=== PATIENT | female | born 2005 | race Caucasian/White ===

== ENCOUNTER 2024-06-11 15:19 | Emergency (ER) | payer SELFPAY ==
[2024-06-11] MEDS: Tetracaine HCl/PF 0.5% 4 ML Bottle EYEBOTH ONE (16:14)
[2024-06-11] MEDS: Fluorescein 1 MG Ophth Strip EYERT ONE (16:17)
[2024-06-11] MEDS: Erythromycin Base 0.5% Ophth Oint 1 GM Tube EYERT ONE (17:03)
[2024-06-11] MEDS: Bacitracin Oint 28.35 GM Tube TOP ONE (17:04)
== END 2024-06-11 17:25 | disposition home or self-care (01) ==
LOC: MW.ED 15:19
DX: T65.891A Toxic effect of other specified substances, accidental (unintentional), initial encounter (principal); T26.91XA Corrosion of right eye and adnexa, part unspecified, initial encounter; Z79.2 Long term (current) use of antibiotics; Z75.8 Other problems related to medical facilities and other health care; X10.2XXA Contact with fats and cooking oils, initial encounter
CPT/HCPCS: 99283; A9270; J3490

== ENCOUNTER 2024-06-16 13:59 | Emergency (ER) | payer SELFPAY ==
[2024-06-16] MEDS: Tetracaine HCl/PF 0.5% 4 ML Bottle EYEBOTH ONE (15:21)
== END 2024-06-16 16:12 | disposition home or self-care (01) ==
LOC: MW.ED 13:59
DX: H57.89 Other specified disorders of eye and adnexa (principal); Z75.8 Other problems related to medical facilities and other health care
CPT/HCPCS: 99283; J3490

== ENCOUNTER 2024-07-22 11:05 | Emergency (ER) | payer SELFPAY ==
[2024-07-22] MEDS: Ondansetron 4 MG/2 ML SDV IVPUSH ONE (11:11)
[2024-07-22] MEDS: Sodium Chloride 0.9% 1,000 ML IV ONE ×2 (11:11→12:00)
[2024-07-22 11:20] LABS: BASOPHILS ABSOLUTE AUTO 0.02 K/uL (0.00-0.20); BASOPHILS PERCENT AUTO 0.2 % (0.0-1.0); EOSINOPHILS ABSOLUTE AUTO 0.02 K/uL (0.00-0.45); EOSINOPHILS PERCENT AUTO 0.2 % (0.0-6.0); HEMATOCRIT 43.6 % (37.0-47.0); HEMOGLOBIN 15.3 g/dL (12.0-16.0); IMMATURE GRAN ABSOLUTE AUTO 0.03 K/uL (0.00-0.05); IMMATURE GRAN PERCENT AUTO 0.3 % (0.0-0.4); LYMPHOCYTES ABSOLUTE AUTO 1.47 K/uL (1.00-4.80); LYMPHOCYTES PERCENT AUTO 15.7 % (24.0-44.0); MEAN CORPUSCULAR HEMOGLOBIN 32.3 pg (28.0-32.0); MEAN CORPUSCULAR HGB CONC 35.1 g/dL (32.0-36.0); MEAN CORPUSCULAR VOLUME 92.2 fL (83.0-99.0); MEAN PLATELET VOLUME 10.5 fL (9.4-12.3); MONOCYTES ABSOLUTE AUTO 0.45 K/uL (0.00-0.80); MONOCYTES PERCENT AUTO 4.8 % (0.0-8.0); NEUTROPHILS ABSOLUTE AUTO 7.39 K/uL (1.80-7.70); NEUTROPHILS PERCENT AUTO 78.8 % (41.0-71.0); PLATELET COUNT,PLT 207 K/uL (150-400); RED BLOOD CELL COUNT 4.73 M/uL (4.10-5.30); WHITE BLOOD CELL COUNT,WBC 9.38 K/uL (3.9-11.3)
[2024-07-22 11:42] LABS: A/G RATIO 1.2 (0.9-1.6); ALBUMIN 4.4 g/dL (3.4-5.0); BILIRUBIN TOTAL 0.7 mg/dL (0.2-1.0); CALCIUM 9.2 mg/dL (8.5-10.1); CARBON DIOXIDE,CO2 21.2 mmol/L (21.0-32.0); EST CRCL DRUG DOSING (CG) 90.53 mL/min; POTASSIUM,K 3.9 mmol/L (3.5-5.1)
[2024-07-22] MEDS: Haloperidol Lactate 5 MG/ML SDV IM ONE (12:00)
[2024-07-22 12:01] LABS: APPEARANCE,URINE CLEAR; GLUCOSE,URINE NEGATIVE (NEGATIVE); KETONES,URINE >=80 mg/dL (NEGATIVE); LEUKOCYTE ESTERASE,URINE NEGATIVE (NEGATIVE); NITRITE,URINE NEGATIVE (NEGATIVE); OCCULT BLOOD,URINE NEGATIVE (NEGATIVE); PH,URINE 6.5 (5.0-8.0); PROTEIN,URINE 30 mg/dL (NEGATIVE); UROBILINOGEN,URINE 0.2 EU/dL (<2.0)
[2024-07-22 12:03] LABS: BILIRUBIN,URINE SMALL (NEGATIVE); COLOR,URINE DARK YELLOW
[2024-07-22 12:12] LABS: BACTERIA,URINE FEW (NEGATIVE); SQUAMOUS EPITHELIAL CELLS,UR FEW; WBC,URINE 0-1 (0-5/HPF)
[2024-07-22 12:15] LABS: EPITHELIAL CELLS,URINE FEW (NONE-FEW); RBC,URINE 0-1 (0-2/HPF)
== END 2024-07-22 12:56 | disposition home or self-care (01) ==
LOC: MW.ED 11:05
DX: E86.0 Dehydration (principal); R11.2 Nausea with vomiting, unspecified
CPT/HCPCS: 36415; 80053; 81001; 81025; 85025; 87428; 96361; 96372; 96374; 99284; J1630; J2405; J7030